=== PATIENT | female | born 2000 ===

== ENCOUNTER 2025-04-08 11:39 | Emergency (ER) | payer OTHER, SELFPAY ==
--- OUTSIDE RECORDS SUMMARY | 2025-03-05 09:15 | XMS_ITS ---
Author Organization [address] [id number] Care Team Providers Care Drainage Inspector Name Role Phone DASHA ROWELL Unavailable [phone] REASON FOR VISIT STI Screen (Symptoms) Social History Sex Assigned At : Social History Observation Description Sex Assigned At Female Encounters Encounter Location Date Provider Diagnosis [address] [id number] DASHA ROWELL Plan Of Treatment No Information Progress Notes * BARAJAS, AmyaDOB:2000 ( 24 yo F)Acc No.[id number]:03/05/2025 Progress Notes Patient: Karin DIMAS Provider: Vamshi ROWELL :2000 A ge:24 Y S ex:Female Date:03/05/2025 Address:[address] [place], [place] [id number] Subjective: * Chief Complaints: * 1 . STI Screen (Symptoms). * Medical History: Objective: * Vitals: Assessment: Plan: * Treatment: * Billing Information: * Visit Code: * Procedure Codes: * Electronic signature of BOB ROWELL CNM on 04/08/2025 at 03:01 PM EDT Sign off status: Pending * Provider: Vamshi ROWELL Date: 03/05/2025 Generated for Michael adan/Fatuma/Marce on: 04/08/2025 03:01 PM EDT
[2025-04-08 11:43] VITALS: BP 107/71; PULSE 68; RESP 16; TEMP 37.1; O2SAT 100; BMI 17.2
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
[2025-04-08 12:16] LABS: MANUAL DIFF FLAG NO
[2025-04-08 12:18] LABS: Hematocrit 34.2 % (37.0-47.0); Hemoglobin 11.9 g/dl (12.0-16.0); Imm Gran Abs Auto 0.01 X10*3/uL (0.00-0.03); Imm Gran Pct Auto 0.1 % (0.0-0.4); Lymphocytes Absolute Auto 1.9 X10*3/uL (1.2-4.9); Mean Corpuscular HGB Conc 34.8 g/dl (31.0-35.0); Mean Corpuscular Hemoglobin 32.7 pg (27.0-33.0); Mean Corpuscular Volume 94.0 fL (80.0-98.0); NRBC Abs Auto 0.000 X10*3/uL (0.0-0.012); NRBC Pct Auto 0.0 /100WBC (0.0-0.2); Platelet Count 225 X10*3/uL (160-400); Red Blood Count 3.64 X10*6/uL (4.20-5.50); White Blood Count 7.9 X10*3/uL (4.8-10.8)
[2025-04-08 12:20] LABS: Appearance Urine Cloudy; Glucose Urine UA Negative (Negative); PH 6.0 (5.0-9.0); Specific Gravity - Urine >= 1.030 (1.005-1.025); UMIC TRIGGER UACC YES
[2025-04-08 12:22] LABS: UPreg QC Valid YES
[2025-04-08 12:23] LABS: UACC Culture Trigger YES
[2025-04-08 12:27] LABS: Cannabinoid Screen Urine POSITIVE (Not Detect)
[2025-04-08 12:37] LABS: Alanine Aminotransferase 29 U/L (0-31); Albumin Level 4.6 g/dL (3.5-5.0); Alkaline Phosphatase 69 U/L (39-117); Anion Gap 11 (12-20); Aspartate Amino Transferase 30 U/L (5-31); Blood Urea Nitrogen 16 mg/dL (9-16); Calcium 9.2 mg/dL (8.4-10.2); Carbon Dioxide 24 mmol/L (22-29); Chloride 108 mmol/L (96-108); Creatinine Clr Calc Pharmacy 72.2; Estimated Glomerular Filt Rate > 60; Lipase 16 U/L (8-78); Potassium 4.0 mmol/L (3.3-5.1); Sodium 139 mmol/L (135-145); Total Protein 7.4 g/dL (6.5-8.0)
[2025-04-08 12:53] LABS: HBS Num1 1.80 mIU/mL (0-7.99); HBc Num1 0.05 S/CO (0.00-0.79); HBsAGNum1 0.41 S/CO (0.00-0.99); HIV Num 1 0.05 S/CO (0.00-0.99); Hepatitis B Surface Antigen Negative (Negative); ~HepC Num1 0.14 S/CO (0.00-0.79); ~Hepatitis B Surface Antibody NONREACTIVE (Nonreactive); ~Hepatitis C Antibody Nonreactive (Nonreactive)
[2025-04-08 12:54] LABS: Syphilis Screen Nonreactive (Nonreactive)
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
[2025-04-08] MEDS: SANE metroNIDAZOLE 500 MG TABLET KIT PO (13:17)
[2025-04-08] MEDS: SANE Doxycycline Monohydrate 100 MG CAPSULE PO (13:17)
[2025-04-08] MEDS: cefTRIAXone sodium 500 MG, Lidocaine HCl 1 % MPF 1 ML IM (13:19)
--- NOTE | 2025-04-08 14:20 | PC.NURSE ---
ADRIÁN arrived to ED and escorted to room 7, continue to await pt advocate at this time. Pt remains alert/oriented.
--- NOTE | 2025-04-08 14:45 | PC.NURSE ---
Pt advocate at bedside at this time
--- OUTSIDE RECORDS SUMMARY | 2025-04-08 15:02 | XMS_ITS | Patient Health Record ---
Author Organization [facility] Address [address] [place] [id number] Care Team Providers Care Financial Agent Name Role Phone DASHA ROWELL Unavailable [phone] Allergies Allergen (clinical drug ingredient) Drug/Non Drug Allergy documented on EMR Reaction Allergy Type Onset Date Status apple allergenic extract apples (uncoded) Unknown Allergy Active orange allergenic extract oranges (uncoded) Unknown Allergy Active Results Component Value Reference Range Notes Test, Urine Reviewed date:12/05/2024 11:33:33 AM Interpretation:Positive Performing Lab: Notes/Report: Positive Test, Urine POSITIVE Lot # [id number] Exp. Date [id number] Urinalysis Reviewed date:12/05/2024 12:52:56 PM Interpretation:ABNORMAL Performing Lab: Notes/Report: ABNORMAL Leukocytes 15 Nitrates pos Uro 3.5 Protein 0. pH 6.0 Blood 80 Spec [place] 1.025 Ketones 1.5 Bilirubin - Glucose - Wet [place] Reviewed date:12/05/2024 12:05:56 PM Interpretation:BV positive Performing Lab: Notes/Report: BV positive Clue Cells pos WBC neg Hyphae neg Trichomonas neg pH 6 JORDYN Prep pos whiff Chlamydia/GC Amplification-1 [id number] Reviewed date:12/09/2024 11:28:46 AM Interpretation:Negative Performing Lab:[facility], [address], [address], [place], Phone - [phone], Director - [facility] Notes/Report: Clinical Information:SRC:urine Chlamydia trachomatis, SUJATA Negative Negative Neisseria gonorrhoeae, SUJATA Negative Negative Reason For Referral No Information Medications Medication SIG (Take, Route, Frequency, Duration) Notes Start Date End Date Status metroNIDAZOLE 500 MG 1 tablet Orally Twice a day, every 12 hours; Duration: 7 days 12/05/2024 Active Amoxicillin-Pot Clavulanate 875-125 MG 1 tablet Orally every 12 hrs; Duration: 5 days DASHA ROWELL 12/05/2024 01:26:43 PM EDT > use GoodRx coupon please. Client without insurance 12/05/2024 Active Nexplanon inserted 05/03/16 Not -Taking Social History Sex Assigned At : Social History Observation Description Sex Assigned At Female Vital Signs Blood pressure diastolic 70 mm Hg 12/05/2024 Height 4ft 10in in 12/05/2024 Blood pressure systolic 110 mm Hg 12/05/2024 Weight 84.6 lbs 12/05/2024 BMI 17.68 kg/m2 12/05/2024 Encounters Encounter Location Date Provider Diagnosis [facility] [address] [place] [address] [place] [id number] 12/05/2024 DASHA ROWELL Encounter for screen ing for infections with a predominantly sexual mode of transmission Z11.3 ; Counseling, unspecified Z71.9 ; Other problems related to lifestyle Z72.89 ; Dysuria R30.0 ; Encounter for test, result negative Z32.02 ; Encounter for test, result positive Z32.01 and Vaginitis, Acute N76.[address] [id number] 12/05/2024 DASHAJOSE ROWELL Assessments Encounter Date Diagnosis (ICD Code) Assessment Notes Treatment Notes Treatment Clinical Notes Section Notes 12/05/2024 Encounter for screening for infections with a predominantly sexual mode of transmission (ICD-10 - Z11.3) Discussed STI risks, screenings that are available through [facility] and safe sex. Clt aware of lab processing times and how to view results on portal and how positive results will be communicated Need 2 out of 3 Sections from A-C Section A) Problems (only need one from below) Section B) Data (need at least one of the following categories in this section) Category 1: (Choose three of the following): Order Unique tests Section C) Risk (any one of the following) Prescription drug management (this counts for the whole section) 12/05/2024 Counseling, unspecified (ICD-10 - Z71.9) Need 2 out of 3 Sections from A-C Section A) Problems (only need one from below) Section B) Data (need at least one of the following categories in this section) Category 1: (Choose three of the following): Order Unique tests Section C) Risk (any one of the following) Prescription drug management (this counts for the whole section) 12/05/2024 Other problems related to lifestyle (ICD-10 - Z72.89) Need 2 out of 3 Sections from A-C Section A) Problems (only need one from below) Section B) Data (need at least one of the following categories in this section) Category 1: (Choose three of the following): Order Unique tests Section C) Risk (any one of the following) Prescription drug management (this counts for the whole section) 12/05/2024 Dysuria (ICD-10 - R30.0) Reviewed that a UA was done on clt despite no urinary symptoms- UA is suggestive of a UTI. Normally I don't recommend asymptomatic UTI treatment but it is recommended during . Clt is feeling like she would like to monitor for now as no sxs. None of our in house antbiotics are considered first line choice for - Will consult with collugues and in the meantime clt to monitor symptoms. If any symptoms develop then I recommend treatment. Clt is aware of the higher risk of a UTI traveling to the kidneys during Need 2 out of 3 Sections from A-C Section A) Problems (only need one from below) Section B) Data (need at least one of the following categories in this section) Category 1: (Choose three of the following): Order Unique tests Section C) Risk (any one of the following) Prescription drug management (this counts for the whole section) 12/05/2024 Encounter for test, result negative (ICD-10 - Z32.02) Need 2 out of 3 Sections from A-C Section A) Problems (only need one from below) Section B) Data (need at least one of the following categories in this section) Category 1: (Choose three of the following): Order Unique tests Section C) Risk (any one of the following) Prescription drug management (this counts for the whole section) 12/05/2024 Encounter for test, result positive (ICD-10 - Z32.01) testing is positive today. Based on reported LMP of 11/08 currently 3 weeks and 6 days along. LEN 08/15/2025. Reviewed results with clt. Clt wasn't expecting a positive test today. Does not feels right now is a good time to go through with a . Would like termination services referral. Briefly reviewed MAB vs aspiration services and gave referral sheet. Also given positive urine PT test results- clt is eligible to sign up for [facility] with positive test results. Need 2 out of 3 Sections from A-C Section A) Problems (only need one from below) Section B) Data (need at least one of the following categories in this section) Category 1: (Choose three of the following): Order Unique tests Section C) Risk (any one of the following) Prescription drug management (this counts for the whole section) 12/05/2024 Vaginitis, Acute (ICD-10 - N76.0) Reviewed BV findings and treatment options. No sexual activity during treatment and condom/barrier use encouraged following for at least a month for prevention. Reviewed an [place] study that came out October 2024, showing a possible sexual transmission aspect of BV. The study found that treating AMAB partners (partner with a penis) decreased reoccurrence rate from 63% to 35% in the first 3 months after treatment. This is a new study, and we are still learning all the implications of it's findings. There is still more to learn regarding BV and proper treatment to avoid recurrent issues. Partner treatment discussed today. Given hx of recurrent BV clt would like to discuss this tx option with their partner. Clt will notify us if partner willing to take partner tx and if they would like Rx sent to pharmacy or to schedule a visit with us for Rx's Medication dispensed from in house stock: lot number [id number], exp 10/11/26 Need 2 out of 3 Sections from A-C Section A) Problems (only need one from below) Section B) Data (need at least one of the following categories in this section) Category 1: (Choose three of the following): Order Unique tests Section C) Risk (any one of the following) Prescription drug management (this counts for the whole section) Plan Of Treatment No Information Insurance Providers Payer Name Payer Address Payer Phone Subscriber Number Group Number Insured Name Patient Relationship to Insured Coverage Start Date Coverage End Date [facility] [id number] [address] [place] [id number] [place] fee cat 2 Coelho, Karin Self - patient is the insured Medications Administered Medication Instructions Date of Administration Dosage Notes Lidocaine 1% 12/23/2019 Medical (General) History Medical History History ICD Code Chlamydia 2015, tx Hx of UTIs GC 2021 Weight concerns Recurrent BV Surgical History Surgery Date(Month/Year) Hospitalization History Reason Date(Month/Year)
[2025-04-08 17:34] VITALS: BP 107/79; PULSE 70; RESP 16; TEMP 37.1; O2SAT 100
[2025-04-09 10:24] LABS: CT PCR Urine NOT DETECTED (Not Detect.); NG PCR Urine NOT DETECTED (Not Detect.)
== END 2025-04-08 17:39 | disposition home or self-care (01) ==
PROVIDERS: Physician Assistant; Emergency Provider Emergency Medicine Emergency Medical Services
DX: T76.21XA Adult sexual abuse, suspected, initial encounter (principal); F17.290 Nicotine dependence, other tobacco product, uncomplicated; N39.0 Urinary tract infection, site not specified; B96.20 Unspecified Escherichia coli [E. coli] as the cause of diseases classified elsewhere; Z16.11 Resistance to penicillins
CPT/HCPCS: 36415; 80048; 80076; 80307; 81001; 81025; 83690; 84702; 85025; 86704; 86706; 86780; 86803; 87086; 87088; 87186; 87340; 87389; 87491; 87591; 99284; J0696; J2003